=== PATIENT | female | born 1965 | race Caucasian/White ===

== ENCOUNTER 2017-11-11 15:32 | Observation (INO) ==
--- NOTE | 2017-11-11 15:38 | Emergency Department Note ---
Overdose - MDM Narrative Medical decision making narrative: Patient has been medically cleared. Awaiting psychiatric evaluation. - Medical Records Medical records reviewed: Yes I reviewed the patient's medical records. - Lab Data Lab results reviewed: Yes I reviewed the patient's lab results. Result diagrams: 11/11/17 16:22 11/11/17 16:22 Lab Results 11/11/17 11/11/17 11/11/17 Range/Units 15:41 16:19 16:22 WBC 7.1 (4.3-11.1) K/mcL RBC 5.35 H (3.82-4.97) M/mcL Hgb 16.2 H (11.5-15.4) g/dL Hct 47.3 H (35.3-44.9) % MCV 88.4 (83.0-100.0) fL MCH 30.3 (28.0-33.3) pg MCHC 34.2 (31.6-35.5) g/dL RDW 14.3 (11.5-14.5) % Plt Count 203 (140-400) K/mcL MPV 8.8 L (9.4-12.4) fL Immature Gran % 0.3 (0-4) % Seg Neutrophils % 52.0 % Lymphocytes % 36.7 % Monocytes % 6.2 % Eosinophils % 3.7 % Basophils % 1.1 % Neutrophils # 3.7 (1.6-8.9) K/mcL Lymphocytes # 2.6 (0.6-4.6) K/mcL Monocytes # 0.4 (0.0-1.3) K/mcL Eosinophils # 0.3 (0.0-0.6) K/mcL Basophils # 0.1 (0.0-0.2) K/mcL Sodium (136-145) mEq/L Potassium (3.5-5.1) mEq/L Chloride (98-107) mEq/L Carbon Dioxide (23-29) mEq/L BUN (6-20) mg/dL Creatinine (0.60-1.20) mg/dL Est GFR ( Amer) (> 60) Est GFR (Non-Af Amer) (> 60) BUN/Creatinine Ratio (6-26) Glucose (70-105) mg/dL Calculated Osmolality (280-300) Calcium (8.6-10.3) mg/dL Total Bilirubin (0.3-1.0) mg/dL Direct Bilirubin (0.0-0.2) mg/dL Indirect Bilirubin (0.0-1.2) mg/dL AST (13-39) Units/L ALT (7-52) Units/L Alkaline Phosphatase (34-104) Units/L Troponin I (< 0.04) ng/mL Serum Total Protein (6.4-8.9) g/dL Albumin (3.5-5.7) g/dL Globulin (2.4-3.5) g/dL Albumin/Globulin Ratio (1.1-2.2) Urine Color Yellow (Yellow) Urine Clarity Clear (Clear) Urine pH 6.5 (5.0-8.0) pH Units Ur Specific [place] 1.014 (1.010-1.025) Urine Protein Negative (Neg-Trace) mg/dL Urine Glucose (UA) Normal (Normal) mg/dL Urine Ketones Negative (Negative) mg/dL Urine Blood Negative (Negative) Urine Nitrite Negative (Negative) Urine Bilirubin Negative (Negative) Urine Urobilinogen Normal (Normal) mg/dL Ur Leukocyte Esterase Negative (Negative) Salicylates (15.0-30.0) mg/dL Urine Opiates Screen Negative (Rxtosw=303) ng/mL Acetaminophen (10-20) mcg/mL Ur Barbiturates Screen Negative (Yrrttx=270) ng/mL Ur Phencyclidine Scrn Negative (Cutoff=25) ng/mL Ur Amphetamines Screen Negative (Ixjndj=2769) ng/mL U Benzodiazepines Scrn Negative (Peyqxn=969) ng/mL Urine Cocaine Screen Negative (Cutoff= 300) ng/mL U Marijuana (THC) Screen Negative (Cutoff = 50) ng/mL Ethyl Alcohol (Less than 10) mg/dL 11/11/17 11/11/17 Range/Units 16:22 16:22 WBC (4.3-11.1) K/mcL RBC (3.82-4.97) M/mcL Hgb (11.5-15.4) g/dL Hct (35.3-44.9) % MCV (83.0-100.0) fL MCH (28.0-33.3) pg MCHC (31.6-35.5) g/dL RDW (11.5-14.5) % Plt Count (140-400) K/mcL MPV (9.4-12.4) fL Immature Gran % (0-4) % Seg Neutrophils % % Lymphocytes % % Monocytes % % Eosinophils % % Basophils % % Neutrophils # (1.6-8.9) K/mcL Lymphocytes # (0.6-4.6) K/mcL Monocytes # (0.0-1.3) K/mcL Eosinophils # (0.0-0.6) K/mcL Basophils # (0.0-0.2) K/mcL Sodium 139 (136-145) mEq/L Potassium 4.2 (3.5-5.1) mEq/L Chloride 108 H (98-107) mEq/L Carbon Dioxide 26 (23-29) mEq/L BUN 19 (6-20) mg/dL Creatinine 0.85 (0.60-1.20) mg/dL Est GFR ( Amer) > 60 (> 60) Est GFR (Non-Af Amer) > 60 (> 60) BUN/Creatinine Ratio 22 (6-26) Glucose 95 (70-105) mg/dL Calculated Osmolality 290 (280-300) Calcium 9.5 (8.6-10.3) mg/dL Total Bilirubin 0.7 (0.3-1.0) mg/dL Direct Bilirubin 0.2 (0.0-0.2) mg/dL Indirect Bilirubin 0.5 (0.0-1.2) mg/dL AST 15 (13-39) Units/L ALT 17 (7-52) Units/L Alkaline Phosphatase 72 (34-104) Units/L Troponin I < 0.03 (< 0.04) ng/mL Serum Total Protein 6.5 (6.4-8.9) g/dL Albumin 4.1 (3.5-5.7) g/dL Globulin 2.4 (2.4-3.5) g/dL Albumin/Globulin Ratio 1.7 (1.1-2.2) Urine Color (Yellow) Urine Clarity (Clear) Urine pH (5.0-8.0) pH Units Ur Specific [place] (1.010-1.025) Urine Protein (Neg-Trace) mg/dL Urine Glucose (UA) (Normal) mg/dL Urine Ketones (Negative) mg/dL Urine Blood (Negative) Urine Nitrite (Negative) Urine Bilirubin (Negative) Urine Urobilinogen (Normal) mg/dL Ur Leukocyte Esterase (Negative) Salicylates < 2.5 L (15.0-30.0) mg/dL Urine Opiates Screen (Ebkosi=113) ng/mL Acetaminophen < 10 L (10-20) mcg/mL Ur Barbiturates Screen (Ztyano=061) ng/mL Ur Phencyclidine Scrn (Cutoff=25) ng/mL Ur Amphetamines Screen (Etewik=7981) ng/mL U Benzodiazepines Scrn (Fywoma=859) ng/mL Urine Cocaine Screen (Cutoff= 300) ng/mL U Marijuana (THC) Screen (Cutoff = 50) ng/mL Ethyl Alcohol < 10 (Less than 10) mg/dL - Radiology Data Radiology results reviewed: Yes I reviewed the patient's radiology results. - EKG Data EKG attestation: Yes I reviewed and interpreted this EKG. EKG results narrative: EKG shows a rate of 72. Normal sinus rhythm. Normal axis. MN interval 141. QRS 80. QTC 422. Normal EKG Overdose HPI - General Chief Complaint: ED Overdose Stated Complaint: took too many pills Time Seen by Provider: 11/11/17 15:37 Source: patient, EMS Mode of arrival: EMS Limitations: no limitations Nursing Notes Reviewed: Yes Vital Signs Reviewed: Yes - History of Present Illness HPI Narrative: 52-year-old female presents to the emergency room for a syncopal episode while at work. Patient took 4 Klonopin tablets earlier as well as 1 Zanaflex tablet and then was so fatigued that she had a passing out spell at work. EMS was called to the work for the syncopal episode and she was transported to the ER. EMS reported to me that she had text that her boss last night stating that she was so tired of her neck pain bothering her that she wanted to kill herself. She does admit to that text last night and states that she is no longer homicidal or any suicidal thoughts. She does not want me to do any workup here in the ER and wants to go home. She denies any focal complaints at this time other than chronic neck pain. - Related Data Allergies Allergy/AdvReac Type Severity Reaction Status Date / Time No Known Allergies Allergy Verified 11/11/17 15:39 All systems ED: reviewed and negative except as stated. Constitutional: Reports: as per HPI. Denies: fever, chills Eyes: Reports: as per HPI Cardiovascular: Denies: chest pain, palpitations, dyspnea on exertion Respiratory: Denies: cough, dyspnea Gastrointestinal: Denies: abdominal pain Genitourinary: Reports: as per HPI Musculoskeletal: Reports: as per HPI, neck pain Integumentary: Reports: as per HPI Neurological: Reports: as per HPI Hematological/Lymphatic: Reports: as per HPI Allergic/Immunologic: Reports: as per HPI Physical Exam - General Limitations: no limitations, language barrier - Head Head exam: atraumatic, normocephalic - Eye Eye exam: Present: normal appearance, PERRL, EOMI - ENT ENT exam: normal exam, normal oropharynx - Neck Neck exam: Present: normal inspection - Chest Chest inspection: Present: normal inspection - Respiratory Respiratory exam: Present: normal lung sounds bilaterally - Cardiovascular Cardiovascular exam: Present: regular rate, normal rhythm - Abdominal Exam Abdominal exam: Present: soft, Non-Tender - Extremities Exam Extremities exam: Present: normal inspection - Expanded Lower Extremity Exam Hip/Pelvis exam: Present: normal inspection Upper leg exam: Present: normal inspection - Neurological Exam Neurological exam: Present: alert, oriented X3 - Psychiatric Psychiatric exam: Present: flat affect. Absent: homicidal ideation, suicidal ideation - Skin Skin exam: Present: warm, dry, intact Course Course Narrative: I, Dr. Swenson, Did not see this patient and was not involved in care. Chart opened in error. Charting per Dr. Mckeon Vital Signs Temperature 98.9 F 11/11/17 15:40 Pulse Rate 84 11/11/17 15:40 Respiratory Rate 14 11/11/17 15:40 Blood Pressure 123/85 11/11/17 15:40 O2 Sat by Pulse Oximetry 97 11/11/17 15:40 Temperature 98.9 F 11/11/17 15:40 Pulse Rate 84 11/11/17 15:40 Respiratory Rate 14 11/11/17 15:40 Blood Pressure 123/85 11/11/17 15:40 O2 Sat by Pulse Oximetry 97 11/11/17 15:40 Oxygen Delivery Oxygen Delivery Room Air Disposition Clinical Impression: Suicidal ideation, Chronic neck pain, Syncope, Overdose Disposition: Still a Patient Condition: Good Referrals: Antione Higgins MD [Primary Care Provider] - Forms: ED Satisfaction Letter Time of Disposition: 18:25
[2017-11-11] MEDS ORDERED: 0.9 % Sodium Chloride 1,000 ML IVC ONE (15:41)
[2017-11-11 16:58] LABS: Acetaminophen < 10 mcg/mL (10-20); Alanine Aminotransferase 17 Units/L (7-52); Albumin 4.1 g/dL (3.5-5.7); Albumin/Globulin Ratio 1.7 (1.1-2.2); Alkaline Phosphatase 72 Units/L (34-104); Aspartate Amino Transferase 15 Units/L (13-39); BUN/Creatinine Ratio 22 (6-26); Bilirubin,Direct 0.2 mg/dL (0.0-0.2); Bilirubin,Indirect 0.5 mg/dL (0.0-1.2); Bilirubin,Total 0.7 mg/dL (0.3-1.0); Blood Urea Nitrogen 19 mg/dL (6-20); Calcium 9.5 mg/dL (8.6-10.3); Carbon Dioxide 26 mEq/L (23-29); Chloride 108 mEq/L (98-107); Ethanol < 10 mg/dL (Less than 10); Globulin 2.4 g/dL (2.4-3.5); Glucose 95 mg/dL (70-105); Osmolality,Calculated 290 (280-300); Potassium 4.2 mEq/L (3.5-5.1); Salicylate < 2.5 mg/dL (15.0-30.0); Sodium 139 mEq/L (136-145); Total Protein 6.5 g/dL (6.4-8.9); eGFR For African Americans > 60 (> 60); eGFR For Non-African Americans > 60 (> 60)
[2017-11-11 16:59] LABS: Basophils # 0.1 K/mcL (0.0-0.2); Basophils % 1.1 %; Eosinophils # 0.3 K/mcL (0.0-0.6); Eosinophils % 3.7 %; Hematocrit 47.3 % (35.3-44.9); Hemoglobin 16.2 g/dL (11.5-15.4); Immature Granulocytes % 0.3 % (0-4); Lymphocytes # 2.6 K/mcL (0.6-4.6); Lymphocytes % 36.7 %; Mean Corpuscular HGB Conc 34.2 g/dL (31.6-35.5); Mean Corpuscular Hemoglobin 30.3 pg (28.0-33.3); Mean Corpuscular Volume 88.4 fL (83.0-100.0); Mean Platelet Volume 8.8 fL (9.4-12.4); Monocytes # 0.4 K/mcL (0.0-1.3); Monocytes % 6.2 %; Neutrophils # 3.7 K/mcL (1.6-8.9); Platelet Count 203 K/mcL (140-400); Red Blood Count 5.35 M/mcL (3.82-4.97); Red Cell Distribution Width 14.3 % (11.5-14.5)
[2017-11-11 17:14] LABS: Bilirubin,Urine Negative (Negative); Blood,Urine Negative (Negative); Clarity,Urine Clear (Clear); Color,Urine Yellow (Yellow); Glucose,Urine (UA) Normal (Normal); Ketones,Urine Negative (Negative); Leukocyte Esterase,Urine Negative (Negative); Nitrite,Urine Negative (Negative); PH,Urine 6.5 pH Units (5.0-8.0); Protein,Urine Negative (Neg-Trace); Specific Gravity,Urine 1.014 (1.010-1.025); Urobilinogen,Urine Normal (Normal)
[2017-11-11 17:21] LABS: Amphetamine Screen,Urine Negative ng/mL (Cutoff=1000); Barbiturate Screen,Urine Negative ng/mL (Cutoff=200); Benzodiazepines Screen,Urine Negative ng/mL (Cutoff=200); Cannabinoid Screen,Urine Negative ng/mL (Cutoff = 50); Cocaine Screen,Urine Negative ng/mL (Cutoff= 300); Opiate Screen,Urine Negative ng/mL (Cutoff=300); Phencyclidine Screen,Urine Negative ng/mL (Cutoff=25)
[2017-11-11] MEDS ORDERED: Ibuprofen 800 MG TABLET PO ONE (18:24)
--- NOTE | 2017-11-11 20:14 | Emergency Department Note ---
Disposition Clinical Impression: Suicidal ideation, Chronic neck pain Syncope Qualifiers: Syncope type: unspecified Qualified Code(s): R55 - Syncope and collapse Overdose Qualifiers: Encounter type: initial encounter Injury intent: accidental or unintentional Qualified Code(s): T50.901A - Poisoning by unspecified drugs, medicaments and biological substances, accidental (unintentional), initial encounter Disposition: Admitted As Inpatient Condition: Fair Referrals: Antione Higgins MD [Primary Care Provider] - Forms: ED Satisfaction Letter General Adult HPI - General Chief complaint: ED Overdose Stated complaint: took too many pills Time Seen by Provider: 11/11/17 15:37 Source: patient, EMS Mode of arrival: EMS Limitations: no limitations, language barrier - History of Present Illness Pain Scale: 6 - Related Data Allergies Allergy/AdvReac Type Severity Reaction Status Date / Time No Known Allergies Allergy Verified 11/11/17 15:39 Constitutional: Reports: as per HPI. Denies: fever, chills Eyes: Reports: as per HPI Cardiovascular: Denies: chest pain, palpitations, dyspnea on exertion Respiratory: Denies: cough, dyspnea Gastrointestinal: Denies: abdominal pain Genitourinary: Reports: as per HPI Musculoskeletal: Reports: as per HPI, neck pain Integumentary: Reports: as per HPI Neurological: Reports: as per HPI Hematological/Lymphatic: Reports: as per HPI Allergic/Immunologic: Reports: as per HPI Past Medical History - Past Medical History Medical history: Reports: no medical history Psychiatric history: Reports: anxiety, depression - Social History Smoking Status: Current every day smoker Smokeless Tobacco Status: No Alcohol use: Reports: none Drug use: Reports: none Physical Exam - General Limitations: no limitations, language barrier General appearance: alert Course Vital Signs Temperature 98.9 F 11/11/17 15:40 Pulse Rate 84 11/11/17 15:40 Respiratory Rate 14 11/11/17 15:40 Blood Pressure 123/85 11/11/17 15:40 O2 Sat by Pulse Oximetry 97 11/11/17 15:40 Temperature 98.9 F 11/11/17 15:40 Pulse Rate 86 11/11/17 20:03 Respiratory Rate 18 11/11/17 20:03 Blood Pressure 152/94 11/11/17 20:03 O2 Sat by Pulse Oximetry 98 11/11/17 20:03 Oxygen Delivery Oxygen Delivery Room Air Medical Decision Making - MDM Narrative Medical decision making narrative: I did see the patient and spoke with her and she was sitting comfortably in the cart. I did speak with Micki from [facility] and the patient is deemed a risk of danger of harm to herself. She does have suicidal ideation. She will be admitted to the hospital. This was discussed between Micki and the psychiatrist. I did inform the patient of this fact - the patient will be admitted. 2012 Admitted to psychiatry as OBS 2016 - Lab Data Result diagrams: 11/11/17 16:22 11/11/17 16:22 Lab Results 11/11/17 11/11/17 11/11/17 Range/Units 15:41 16:19 16:22 WBC 7.1 (4.3-11.1) K/mcL RBC 5.35 H (3.82-4.97) M/mcL Hgb 16.2 H (11.5-15.4) g/dL Hct 47.3 H (35.3-44.9) % MCV 88.4 (83.0-100.0) fL MCH 30.3 (28.0-33.3) pg MCHC 34.2 (31.6-35.5) g/dL RDW 14.3 (11.5-14.5) % Plt Count 203 (140-400) K/mcL MPV 8.8 L (9.4-12.4) fL Immature Gran % 0.3 (0-4) % Seg Neutrophils % 52.0 % Lymphocytes % 36.7 % Monocytes % 6.2 % Eosinophils % 3.7 % Basophils % 1.1 % Neutrophils # 3.7 (1.6-8.9) K/mcL Lymphocytes # 2.6 (0.6-4.6) K/mcL Monocytes # 0.4 (0.0-1.3) K/mcL Eosinophils # 0.3 (0.0-0.6) K/mcL Basophils # 0.1 (0.0-0.2) K/mcL Sodium (136-145) mEq/L Potassium (3.5-5.1) mEq/L Chloride (98-107) mEq/L Carbon Dioxide (23-29) mEq/L BUN (6-20) mg/dL Creatinine (0.60-1.20) mg/dL Est GFR ( Amer) (> 60) Est GFR (Non-Af Amer) (> 60) BUN/Creatinine Ratio (6-26) Glucose (70-105) mg/dL Calculated Osmolality (280-300) Calcium (8.6-10.3) mg/dL Total Bilirubin (0.3-1.0) mg/dL Direct Bilirubin (0.0-0.2) mg/dL Indirect Bilirubin (0.0-1.2) mg/dL AST (13-39) Units/L ALT (7-52) Units/L Alkaline Phosphatase (34-104) Units/L Troponin I (< 0.04) ng/mL Serum Total Protein (6.4-8.9) g/dL Albumin (3.5-5.7) g/dL Globulin (2.4-3.5) g/dL Albumin/Globulin Ratio (1.1-2.2) Urine Color Yellow (Yellow) Urine Clarity Clear (Clear) Urine pH 6.5 (5.0-8.0) pH Units Ur Specific [place] 1.014 (1.010-1.025) Urine Protein Negative (Neg-Trace) mg/dL Urine Glucose (UA) Normal (Normal) mg/dL Urine Ketones Negative (Negative) mg/dL Urine Blood Negative (Negative) Urine Nitrite Negative (Negative) Urine Bilirubin Negative (Negative) Urine Urobilinogen Normal (Normal) mg/dL Ur Leukocyte Esterase Negative (Negative) Salicylates (15.0-30.0) mg/dL Urine Opiates Screen Negative (Cjggvk=932) ng/mL Acetaminophen (10-20) mcg/mL Ur Barbiturates Screen Negative (Iefbou=863) ng/mL Ur Phencyclidine Scrn Negative (Cutoff=25) ng/mL Ur Amphetamines Screen Negative (Fsdjkx=8597) ng/mL U Benzodiazepines Scrn Negative (Ausdcu=276) ng/mL Urine Cocaine Screen Negative (Cutoff= 300) ng/mL U Marijuana (THC) Screen Negative (Cutoff = 50) ng/mL Ethyl Alcohol (Less than 10) mg/dL 11/11/17 11/11/17 Range/Units 16:22 16:22 WBC (4.3-11.1) K/mcL RBC (3.82-4.97) M/mcL Hgb (11.5-15.4) g/dL Hct (35.3-44.9) % MCV (83.0-100.0) fL MCH (28.0-33.3) pg MCHC (31.6-35.5) g/dL RDW (11.5-14.5) % Plt Count (140-400) K/mcL MPV (9.4-12.4) fL Immature Gran % (0-4) % Seg Neutrophils % % Lymphocytes % % Monocytes % % Eosinophils % % Basophils % % Neutrophils # (1.6-8.9) K/mcL Lymphocytes # (0.6-4.6) K/mcL Monocytes # (0.0-1.3) K/mcL Eosinophils # (0.0-0.6) K/mcL Basophils # (0.0-0.2) K/mcL Sodium 139 (136-145) mEq/L Potassium 4.2 (3.5-5.1) mEq/L Chloride 108 H (98-107) mEq/L Carbon Dioxide 26 (23-29) mEq/L BUN 19 (6-20) mg/dL Creatinine 0.85 (0.60-1.20) mg/dL Est GFR ( Amer) > 60 (> 60) Est GFR (Non-Af Amer) > 60 (> 60) BUN/Creatinine Ratio 22 (6-26) Glucose 95 (70-105) mg/dL Calculated Osmolality 290 (280-300) Calcium 9.5 (8.6-10.3) mg/dL Total Bilirubin 0.7 (0.3-1.0) mg/dL Direct Bilirubin 0.2 (0.0-0.2) mg/dL Indirect Bilirubin 0.5 (0.0-1.2) mg/dL AST 15 (13-39) Units/L ALT 17 (7-52) Units/L Alkaline Phosphatase 72 (34-104) Units/L Troponin I < 0.03 (< 0.04) ng/mL Serum Total Protein 6.5 (6.4-8.9) g/dL Albumin 4.1 (3.5-5.7) g/dL Globulin 2.4 (2.4-3.5) g/dL Albumin/Globulin Ratio 1.7 (1.1-2.2) Urine Color (Yellow) Urine Clarity (Clear) Urine pH (5.0-8.0) pH Units Ur Specific [place] (1.010-1.025) Urine Protein (Neg-Trace) mg/dL Urine Glucose (UA) (Normal) mg/dL Urine Ketones (Negative) mg/dL Urine Blood (Negative) Urine Nitrite (Negative) Urine Bilirubin (Negative) Urine Urobilinogen (Normal) mg/dL Ur Leukocyte Esterase (Negative) Salicylates < 2.5 L (15.0-30.0) mg/dL Urine Opiates Screen (Tvgasw=106) ng/mL Acetaminophen < 10 L (10-20) mcg/mL Ur Barbiturates Screen (Mdywkc=806) ng/mL Ur Phencyclidine Scrn (Cutoff=25) ng/mL Ur Amphetamines Screen (Lirqnc=9143) ng/mL U Benzodiazepines Scrn (Zzvvmc=561) ng/mL Urine Cocaine Screen (Cutoff= 300) ng/mL U Marijuana (THC) Screen (Cutoff = 50) ng/mL Ethyl Alcohol < 10 (Less than 10) mg/dL
[2017-11-11] MEDS ORDERED: Acetaminophen 325 MG TABLET PO PRN (21:02)
[2017-11-11] MEDS ORDERED: traZODone 50 MG TABLET PO PRN (21:02)
[2017-11-11] MEDS ORDERED: *HR* LORazepam 1 MG TABLET PO PRN (21:02)
[2017-11-11] MEDS ORDERED: MOM Conc 10 ML UD.LIQ PO PRN (21:02)
[2017-11-11] MEDS ORDERED: *HR* LORazepam 2 MG/ML VIAL IM PRN (21:02)
[2017-11-11] MEDS ORDERED: Haloperidol Lactate 5 MG/ML VIAL IM PRN (21:02)
[2017-11-11] MEDS ORDERED: hydrOXYzine pamoate 25 MG CAPSULE PO PRN (21:02)
[2017-11-11] MEDS ORDERED: Mag Hydrox/Al Hydrox/Simeth 30 ML UDC PO PRN (21:02)
[2017-11-11] MEDS ORDERED: tiZANidine 4 MG TABLET PO PRN (21:06)
[2017-11-11] MEDS ORDERED: Nicotine 2 MG GUM BC PRN (22:02)
[2017-11-12] MEDS ORDERED: clonazePAM 0.5 MG TABLET PO SCH (09:00)
[2017-11-12] MEDS ORDERED: Venlafaxine XR (24 HR) 75 MG CAP.ER.24H PO SCH (09:00)
[2017-11-12 10:19] VITALS: BP 109/72
--- NOTE | 2017-11-12 10:19 | Discharge Summary ---
Date of Encounter: 11/12/17 Time of Encounter: 09:15 History of Present Illness Chief complaint: "I was feeling a lot of pain." Admitted From: Emergency Dept History of Present Illness: Ms. Harrington is a 52 year old female with a long-standing history of interpersonal relationship problems, depression, anxiety who presented to the hospital sent from her work after apparently reporting to her boss that she did not want to live anymore if she had to continue to live with her pain. Patient states she has been having some pain in her neck and that in addition to some family issues which have been ongoing major feel very upset and little bit hopeless. She admits that she had thoughts of wanting to hurt twins sister prior to admission. She stated that she would try to hurt her if she saw her. This morning patient states that she was overwhelmed and upset but that she no longer wants to hurt her sister. "I would never do that I was just very overwhelmed." Patient has no history of physical violence or physical altercations her legal issues regarding this. She apparently also tried to take more Klonopin than was prescribed to help her sleep the other night but denies that this was a suicide attempt. "I am just so stressed." She does rely a lot on her work family to help her deal with her emotions. She is working a lot of hours now and has been unable to transition to a different therapist. We discussed the importance of going to therapy and processing her feelings. Patient states that she would be willing to go back to therapy at family paperwork to be filled out so that she could leave work to go to therapy and doctor appointments. She is very attached to her dog and gets a lot of little emotional support from her daughter. She does report difficulty falling and staying asleep partially due to pain. She does feel the Effexor, Risperdal , Klonopin combination for the most part helps with her mood. She denies auditory or visual hallucinations. She denies obsessions, delusions, paranoia. Today she denies suicidal or homicidal ideation, intent, or plan. She denies access to guns or weapons. Patient has follow-up psychiatric appointment on 12/23/2017 at 1:30 PM at the [facility]. Past Med Surg Social Fam HX - Past Medical History Medical history: no medical history, arthritis, hyperlipidemia - Past Psychiatric History Psychiatric history: Reports: anxiety, depression. Denies: prior suicide attempt, previous psychiatric hospitalization Past psychiatric history details: Patient is seen at the [facility]. She currently does not have a counselor. She has no previous admissions and no previous suicide attempts. Family psychiatric history: Yes Family Psychiatric History Details: Her sister may have some problems with depression. Family History of Suicide: None - Social History Smoking Status: Current every day smoker Smokeless Tobacco Status: No Alcohol use: none Drug use: none Occupational status: employed Current living situation: Home - Independent Activity Level: Independent ambulation - Family History Mother Adopted: [place]: Tessie Age: 73 Family Member Ethnicity: Non- Living Status: Age at : 73 Cause of : non-alcoholic cirrosis of the liver Hx Family Cardiac Disorders: No Hx Family Respiratory Disorders: No Hx Family Cancer: No Hx Family GI Disorders: Yes (reflux) Hx Family Genitourinary Disorders: Yes (hysterectomy) Hx Family Endocrine Disorder: Yes (goiter) Hx Family Musculoskeletal Disorders: No Hx Family Neuromuscular Disorders: No Hx Family Neurologic Disorders: No Hx Family HEENT Disorders: No Hx Family Autoimmune Disorders: No Hx Family Reproductive Disorders: No Hx Family Psychosocial Disorders: No Hx Family Medical Disorders: No Medications - Discharge Medications Prescriptions: hydrOXYzine pamoate [HydrOXYzine Pamoate] 25 mg PO TID PRN #90 capsule PRN Reason: Anxiety traZODone [TraZODone] 50 mg PO HS PRN #30 tablet PRN Reason: Insomnia Atorvastatin Calcium [Lipitor] 80 mg PO HS 11/11/17 [History] Meloxicam 7.5 mg PO DAILY 11/11/17 [History] Onabotulinumtoxina [Botox] 200 unit IM AD 11/11/17 [History] Tizanidine HCl 2 mg PO TID PRN 11/11/17 [History] Venlafaxine HCl [Venlafaxine HCl ER] 225 mg PO DAILY 11/11/17 [History] clonazePAM [Klonopin] 0.5 mg PO QAM 11/11/17 [History] clonazePAM [Klonopin] 1 mg PO HS 11/11/17 [History] risperiDONE [Risperidone] 1 mg PO HS 11/11/17 [History] hydrOXYzine pamoate [HydrOXYzine Pamoate] 25 mg PO TID PRN #90 capsule 11/12/17 [Rx] traZODone [TraZODone] 50 mg PO HS PRN #30 tablet 11/12/17 [Rx] 3 Allergy/AdvReac Type Severity Reaction Status Date / Time aspirin Allergy See Verified 11/11/17 20:43 Comments Cyclobenzaprine Allergy See Verified 11/11/17 20:43 [From Flexeril] Comments meperidine [From Demerol] Allergy See Verified 11/11/17 20:43 Comments NSAIDS (Non-Steroidal Allergy See Verified 11/11/17 20:43 Anti-Inflamma Comments Review of Systems Constitutional: Denies: fever, chills, weakness, weight change Eyes: Denies: eye pain, vision change Ears, Nose, Throat: Denies: ear pain, throat pain, dental pain, hearing loss, congestion Cardiovascular: Denies: chest pain, palpitations, dyspnea on exertion Respiratory: Denies: cough, dyspnea, wheezes Gastrointestinal: Denies: abdominal pain, nausea, vomiting, diarrhea, constipation Genitourinary female: Denies: urgency, dysuria, frequency, abnormal menses, dyspareunia Musculoskeletal: Reports: back pain, joint pain, myalgia Integumentary: Denies: rash, lesions, pruritus Neurological: Denies: headache, weakness, numbness, memory loss Psychiatric: Reports: depression, anxiety, abnormal sleep pattern, irritability. Denies: suicidal ideation Endocrine: Denies: fatigue, heat or cold intolerance Hematologic/Lymphatic: Denies: easy bruising, lymphadenopathy Allergic/Immunologic: Denies: urticaria, itchy eyes Exam - HEENT Head exam IM: Present: atraumatic Eye exam IM: Present: EOMI, normal appearance, PERRL ENT exam IM: Present: normal exam - Neurological Neurological exam: Present: CN II-XII intact - Respiratory Respiratory exam IM: Present: CTAB - GI/Abdominal GI/Abdominal exam IM: Present: normal bowel sounds, soft. Absent: tenderness - Extremities Extremities exam IM: Present: full ROM - Skin Skin exam IM: Present: dry, warm - Constitutional Vitals: Temp Pulse Resp BP Pulse Ox 97.5 F L 80 16 144/85 98 11/11/17 22:38 11/11/17 22:38 11/11/17 22:38 11/11/17 22:38 11/11/17 20:03 General appearance: age & developmentally appropriate, well-nourished - Musculoskeletal Gait: normal Station: relaxed Strength & Tone: normal for patient - Psychiatric Patient Orientation: Yes Person, Yes Time, Yes Place Level of alertness: Alert Behavior: calm, cooperative Psychomotor activity: Normal Eye Contact: Maintains Eye Contact Mood Description: Euthymic/stable Affect description: congruent with mood, full range Speech Volume: Normal Speech pattern: normal rate, normal rhythm, normal tone, fluent, spontaneous Language & Vocabulary: consistent with education Thought Process: Linear, Goal Oriented Thought Content: No Suicidal ideation, No Homicidal ideation, No Overt delusions Perceptual Disturbances: No Auditory hallucinations, No Visual hallucinations Attention Span Ability: Capable of Focused Attention Memory Description: Grossly Intact Patient Reliability: Reliable Historian Fund of knowledge: Yes abstraction ability, Yes average, Yes aware of current events Intelligence Estimate: Average Judgment: Limited Insight: Partial Results - Labs Labs: Laboratory Last Values WBC 7.1 K/mcL (4.3-11.1) 11/11/17 16:22 RBC 5.35 M/mcL (3.82-4.97) H 11/11/17 16:22 Hgb 16.2 g/dL (11.5-15.4) H 11/11/17 16:22 Hct 47.3 % (35.3-44.9) H 11/11/17 16:22 MCV 88.4 fL (83.0-100.0) 11/11/17 16:22 MCH 30.3 pg (28.0-33.3) 11/11/17 16:22 MCHC 34.2 g/dL (31.6-35.5) 11/11/17 16:22 RDW 14.3 % (11.5-14.5) 11/11/17 16:22 Plt Count 203 K/mcL (140-400) 11/11/17 16:22 MPV 8.8 fL (9.4-12.4) L 11/11/17 16:22 Immature Gran % 0.3 % (0-4) 11/11/17 16:22 Seg Neutrophils % 52.0 % 11/11/17 16:22 Lymphocytes % 36.7 % 11/11/17 16:22 Monocytes % 6.2 % 11/11/17 16:22 Eosinophils % 3.7 % 11/11/17 16:22 Basophils % 1.1 % 11/11/17 16:22 Neutrophils # 3.7 K/mcL (1.6-8.9) 11/11/17 16:22 Lymphocytes # 2.6 K/mcL (0.6-4.6) 11/11/17 16:22 Monocytes # 0.4 K/mcL (0.0-1.3) 11/11/17 16:22 Eosinophils # 0.3 K/mcL (0.0-0.6) 11/11/17 16:22 Basophils # 0.1 K/mcL (0.0-0.2) 11/11/17 16:22 Sodium 139 mEq/L (136-145) 11/11/17 16:22 Potassium 4.2 mEq/L (3.5-5.1) 11/11/17 16:22 Chloride 108 mEq/L (98-107) H 11/11/17 16:22 Carbon Dioxide 26 mEq/L (23-29) 11/11/17 16:22 BUN 19 mg/dL (6-20) 11/11/17 16:22 Creatinine 0.85 mg/dL (0.60-1.20) 11/11/17 16:22 Est GFR ( Amer) > 60 (> 60) 11/11/17 16:22 Est GFR (Non-Af Amer) > 60 (> 60) 11/11/17 16:22 BUN/Creatinine Ratio 22 (6-26) 11/11/17 16:22 Glucose 95 mg/dL (70-105) 11/11/17 16:22 Calculated Osmolality 290 (280-300) 11/11/17 16:22 Calcium 9.5 mg/dL (8.6-10.3) 11/11/17 16:22 Total Bilirubin 0.7 mg/dL (0.3-1.0) 11/11/17 16:22 Direct Bilirubin 0.2 mg/dL (0.0-0.2) 11/11/17 16:22 Indirect Bilirubin 0.5 mg/dL (0.0-1.2) 11/11/17 16:22 AST 15 Units/L (13-39) 11/11/17 16:22 ALT 17 Units/L (7-52) 11/11/17 16:22 Alkaline Phosphatase 72 Units/L (34-104) 11/11/17 16:22 Troponin I < 0.03 ng/mL (< 0.04) 11/11/17 16:22 Serum Total Protein 6.5 g/dL (6.4-8.9) 11/11/17 16:22 Albumin 4.1 g/dL (3.5-5.7) 11/11/17 16:22 Globulin 2.4 g/dL (2.4-3.5) 11/11/17 16:22 Albumin/Globulin Ratio 1.7 (1.1-2.2) 11/11/17 16:22 Urine Color Yellow (Yellow) 11/11/17 16:19 Urine Clarity Clear (Clear) 11/11/17 16:19 Urine pH 6.5 pH Units (5.0-8.0) 11/11/17 16:19 Ur Specific [place] 1.014 (1.010-1.025) 11/11/17 16:19 Urine Protein Negative mg/dL (Neg-Trace) 11/11/17 16:19 Urine Glucose (UA) Normal mg/dL (Normal) 11/11/17 16:19 Urine Ketones Negative mg/dL (Negative) 11/11/17 16:19 Urine Blood Negative (Negative) 11/11/17 16:19 Urine Nitrite Negative (Negative) 11/11/17 16:19 Urine Bilirubin Negative (Negative) 11/11/17 16:19 Urine Urobilinogen Normal mg/dL (Normal) 11/11/17 16:19 Ur Leukocyte Esterase Negative (Negative) 11/11/17 16:19 Salicylates < 2.5 mg/dL (15.0-30.0) L 11/11/17 16:22 Urine Opiates Screen Negative ng/mL (Didlko=048) 11/11/17 15:41 Acetaminophen < 10 mcg/mL (10-20) L 11/11/17 16:22 Ur Barbiturates Screen Negative ng/mL (Bnizbz=115) 11/11/17 15:41 Ur Phencyclidine Scrn Negative ng/mL (Cutoff=25) 11/11/17 15:41 Ur Amphetamines Screen Negative ng/mL (Tnclrr=8153) 11/11/17 15:41 U Benzodiazepines Scrn Negative ng/mL (Mrxhck=510) 11/11/17 15:41 Urine Cocaine Screen Negative ng/mL (Cutoff= 300) 11/11/17 15:41 U Marijuana (THC) Screen Negative ng/mL (Cutoff = 50) 11/11/17 15:41 Ethyl Alcohol < 10 mg/dL (Less than 10) 11/11/17 16:22 Diagnosis - Discharge Diagnosis (1) Adjustment disorder Status: Acute Comments: Patient is having increased stressors secondary to relationship problems and work stress. Qualifiers: Adjustment disorder type: with mixed disturbance of emotions and conduct Qualified Code(s): F43.25 - Adjustment disorder with mixed disturbance of emotions and conduct (2) Major depression Status: Acute Qualifiers: Major depression recurrence: recurrent Active/Remission status: currently active Major depression episode severity: moderate Qualified Code(s): F33.1 - Major depressive disorder, recurrent, moderate (3) Anxiety Status: Acute Assessment and Plan - Patient/Caregiver Discharge Instructions Activity: resume usual activities as tolerated Diet: regular diet - Follow up Plan Follow up with: Antione Higgins MD [Primary Care Provider] - Functional capacity at discharge: independent ambulation Overall status at discharge: Stable Disposition: Home, Self-Care Provider Date of admission: 11/11/17 20:55 Primary care physician: Antione Higgins MD Discharging clinician: Lolis Corrales Hospital Course Hospital course: Ms. Harrington is a 52 year old female with a history of depression, anxiety, relationship problems who presented to the hospital in crisis reporting homicidal ideation as well as having made suicidal statements to boss earlier that day. Patient was admitted to [facility] for crisis stabilization. She was incorporated into the therapeutic milieu and offer group and individual as well as recreational therapy. She was also offered psychoeducational materials and supportive therapy. She was placed on suicide precautions and close observation per unit protocol. Patient was restarted on her home medications and also offer Vistaril for anxiety and trazodone for sleep. Patient states that the trazodone did help her with breast despite her neck pain which is one of her stressors. Patient states she has had time to think about it she does not want to hurt anyone or hurt herself. She was cooperative with peers and staff on the unit. She has no history of violence and no access to weapons. She is willing to restart with a therapist as an outpatient. She will also follow-up outpatient for her medications. She felt Vistaril and trazodone were helpful medications for her. She denies side effects of these new meds. At the time of discharge she denies suicidal or homicidal ideation, intent or plan. She is future oriented. She is discharged in stable condition. - Time Spent with Patient Total time spent providing and/or coordinating discharge services: Procedures - Procedures Procedures: Medication Management, Crisis Stabilization, Supportive Therapy, Group Therapy, Psychoeducational Therapy Quality - Multiple Antipsychotics Patient discharged on 2 or more antipsychotic medications: No
[2017-11-12] MEDS ORDERED: risperiDONE 1 MG TABLET PO SCH (21:00)
[2017-11-12] MEDS ORDERED: clonazePAM 1 MG TABLET PO SCH (21:00)
--- NOTE | 2017-11-14 13:38 | Electrocardiograph Report ---
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
== END 2017-11-12 11:35 | disposition home or self-care (01) ==
LOC: EMEROO 15:32 → 1ANU 15:32
PROVIDERS: ADMIT Student in an Organized Health Care Education/Training Program; ATTEND Student in an Organized Health Care Education/Training Program